=== PATIENT | male | born 1945 | race Caucasian/White ===

== ENCOUNTER → 2019-12-12 | Outpatient (CLI) | payer OTHER ==
[2019-12-12 12:47] LABS: CREATININE 2.09 mg/dL (0.70-1.30)
== END | disposition home or self-care (01) ==
LOC: LAB 12:03 → CT 13:00
PROVIDERS: Internal Medicine Critical Care Medicine
DX: Z01.818 Encounter for other preprocedural examination (principal); R91.8 Other nonspecific abnormal finding of lung field